=== PATIENT | female | born 1995 | race Caucasian/White ===

== ENCOUNTER 2021-05-28 00:45 | Emergency (ER) | payer OTHER, SELFPAY ==
--- NOTE | ~2021-05-28 | XR_ITS ---
EXAMINATION: XR SHOULDER, RIGHT CLINICAL INFORMATION: Pain COMPARISON: None TECHNIQUE: Four views of the right shoulder. FINDINGS: Glenohumeral alignment is anatomic. No acute fracture is seen. The acromioclavicular joint is intact. XR/XR shoulder RT min 2V IMPRESSION: No acute findings.
[2021-05-28 00:50] VITALS: BP 110/56; PULSE 81; RESP 16; TEMP 37.2; O2SAT 98; BMI 28.9
--- NOTE | 2021-05-28 01:54 | ED_ITS ---
HPI - Extremity Problem General Chief complaint: Extremity Injury, Upper Stated complaint: R shoulder pain Left lower back Time Seen by Provider: 05/28/21 00:47 Source: patient Mode of arrival: ambulatory Limitations: no limitations History of Present Illness HPI Narrative: Patient comes to the emergency room complaining of right shoulder pain and left-sided back pain. Patient states that she is in [employer]. Patient had to carry 150 lb bag over her shoulder for 3 flights Related Data Previous Rx's Medication Instructions Recorded cyclobenzaprine 5 mg tablet 10 mg PO TID PRN #7 tab 05/28/21 ibuprofen 600 mg tablet 600 mg PO Q6H PRN #14 tab 05/28/21 Allergies Allergy/AdvReac Type Severity Reaction Status Date / Time No Known Allergies Allergy Verified 05/28/21 01:53 Review of Systems Review of Systems: Constitutional : No Weight loss, No Fever, No Chills, No Night Sweats, No Fatigue, No Malaise ENT/Mouth : No Hearing loss, No Ear Pain, No Nasal Congestion, No Sinus Pain, No Hoarseness, No sore throat, No Rhinorrhea, No Swallowing Difficulty Eyes: No Eye Pain, No Swelling, No Redness, No Foreign Body, No Discharge, No Vision Changes Cardiovascular : No Chest Pain, No SOB, No Dyspnea on Exertion, No Orthopnea, No Edema, No Palpitations Respiratory : No Cough, No Sputum, No Wheezing, No Smoke Exposure, No Dyspnea Gastrointestinal : No Nausea, No Vomiting, No Diarrhea, No Constipation, No ab dominal Pain, No Hematochezia, No Melena Genitourinary : no irregular bleeding, No Dysuria, No Urinary Frequency, No Hematuria, No Urinary Incontinence, No Urgency, No Flank Pain, No Urinary Flow Changes, No Hesitancy Musculoskeletal : Complaining of right shoulder pain and left lower back pain Skin : No Skin Lesions, No rash Neuro : No Weakness, No Numbness, No Paresthesias, No Loss of Consciousness, No Dizziness, No Headache Psych : No Anxiety/Panic, No Depression, No SI/HI/AH/VH, No Social Issues, Heme/Lymph: No Bruising, No Bleeding,No Lymphadenopathy Endocrine : No Polyuria, No Polydipsia, No Temperature Intolerance PMFSH Past Medical History Medical History No known health problems Social History Social History Patient Tobacco Use Status: Never used Tobacco Use of substances other than those prescribed or required for medical reasons: No Advance Directives: No Advance Directives Information Provided: No Patient : No Physical Exam Vital Signs: Vital Signs: Last Vital Signs Temp 98.5 F 05/28/21 02:00 Pulse 71 05/28/21 02:00 Resp 16 05/28/21 02:00 BP 110/59 L 05/28/21 02:00 Pulse Ox 98 05/28/21 02:00 Body Mass Index 28.9 Const: Other: Appearance: Alert. Oriented X3. No acute distress. Eyes: Pupils equal, round and reactive to light. ENT: Pharynx normal. Neck: Normal inspection. Neck supple. No lymph nodes noted. No crepitus CVS: Normal heart rate and rhythm. Pulses normal. Normal S1 and S2 Respiratory: No respiratory distress. Breath sounds normal. No Wheezing. No rales Abdomen: Soft and nontender. No rigidity. No distention. Back: Pain to palpation over the paraspinal muscles on the left side of the back Skin: Skin warm and dry. Normal skin color. Normal skin turgor. Extremities: No lower extremity edema. Pain to palpation over the frontal aspect of the right shoulder. Patient is able to abduct the right arm up to 90 degrees. Neuro: Oriented X 3. No motor deficit. No sensory deficit. Moving all extermities. No slurred speech. Course Course Course Narrative: Patient sleeping comfortably now, given 1 dose of Toradol and 1 dose of 2 mg PO Valium. Patient instructed to follow-up with her primary care physician if she does not have any symptom improvement especially her shoulder, she may need an MRI. At this time, x-ray within normal limits, no bony abnormality, likely having bursitis versus labrum tear, versus rotator cuff inj ury MDM - Extremity (Nontraumatic) Lab Data Labs: Lab Results 05/28/21 05/28/21 Range/Units 02:23 02:23 Urine Color YELLOW Urine Appearance CLEAR Urine pH 6.0 (5.0-8.0) Ur Specific [place] 1.020 (1.005-1.025) Urine Protein NEG (NEG-TRACE) MG/DL Urine Glucose (UA) NEG (NEG) MG/DL Urine Ketones 15 (NEG) MG/DL Urine Blood TRACE (NEG) Urine Nitrite NEG (NEG) Ur Leukocyte Esterase NEG (NEG) Urine RBC 0 (0) /HPF Urine WBC 0-2 (0-4) /HPF Ur Squamous Epith Cells 2+ /LPF Urine Bacteria 2+ /LPF Urine Test NEGATIVE (NEGATIVE) Imaging Data Shoulder x-ray: Radiologist's impression: Glenohumeral alignment is anatomic. No acute fracture is seen. The acromioclavicular joint is intact.? XR/XR shoulder RT min 2V IMPRESSION: No acute findings. Discharge Plan Discharge Clinical Impression: Muscle strain Patient Disposition: Home, Self-Care Instructions: Musculoskeletal Pain (ED) Additional Instructions: Please follow-up with your primary care physician tomorrow. If you have any worsening or new symptoms, please return to the emergency room or call 911 Prescriptions: New ibuprofen 600 mg tablet 600 mg PO Q6H PRN (Reason: pain) Qty: 14 RF: 0 cyclobenzaprine 5 mg tablet 10 mg PO TID PRN (Reason: muscle spasm) Qty: 7 RF: 0 Referrals: Cristóbal Valderrama PA-C [Physician Cash Applications Representative] - 2 days Stand Alone Forms: Work/School Release
[2021-05-28 02:00] VITALS: BP 110/59; PULSE 71; RESP 16; TEMP 36.9; O2SAT 98
[2021-05-28] MEDS: Ketorolac Tromethamine 60 MG/2 ML VIAL IM (02:26)
[2021-05-28] MEDS: diazePAM 2 MG TABLET PO (02:30)
[2021-05-28 02:33] LABS: Appearance Urine CLEAR; Color Urine YELLOW; Glucose Urine UA NEG (NEG); Leukocyte Esterase Urine NEG (NEG); Nitrite Urine NEG (NEG); UACC Culture Trigger NO; Urine Blood TRACE (NEG); Urine Ketones 15 MG/DL (NEG); Urine Protein NEG (NEG-TRACE)
[2021-05-28 02:36] LABS: UPreg QC Valid YES; Urine Pregnancy NEGATIVE (NEGATIVE)
[2021-05-28 02:43] LABS: Bacteria Urine 2+ /LPF; RBC Urine 0 /HPF (0); Squamous Epithelial Cell Urine 2+ /LPF; WBC Urine 0-2 /HPF (0-4)
== END 2021-05-28 03:34 | disposition home or self-care (01) ==
PROVIDERS: Emergency Provider Emergency Medicine
DX: S46.911A Strain of unspecified muscle, fascia and tendon at shoulder and upper arm level, right arm, initial encounter (principal); X50.0XXA Overexertion from strenuous movement or load, initial encounter; Y93.A5 Activity, obstacle course; Y92.84 Military training ground as the place of occurrence of the external cause; Y99.8 Other external cause status
CPT/HCPCS: 73030; 81001; 81025; 96372; 99284; J1885

== ENCOUNTER → 2021-06-25 13:56 | Outpatient (BNVA) | payer OTHER, SELFPAY | PROVIDERS: Visit Provider Physician Assistant | DX: M75.101 Unspecified rotator cuff tear or rupture of right shoulder, not specified as traumatic (principal) | CPT/HCPCS: 99202 ==

== ENCOUNTER → 2021-08-06 15:31 | Outpatient (BNVA) | payer OTHER, SELFPAY | PROVIDERS: Visit Provider Physician Assistant | DX: M75.21 Bicipital tendinitis, right shoulder (principal); M75.101 Unspecified rotator cuff tear or rupture of right shoulder, not specified as traumatic; M89.8X1 Other specified disorders of bone, shoulder | CPT/HCPCS: 99212 ==

== ENCOUNTER 2021-10-09 18:43 | Outpatient (REF) | payer OTHER, SELFPAY ==
--- NOTE | ~2021-10-09 | MR_ITS ---
EXAMINATION: MR SHOULDER WITHOUT CONTRAST, RIGHT CLINICAL INFORMATION: Right shoulder pain. COMPARISON: None. TECHNIQUE: MRI of the shoulder without contrast was performed on a high-field scanner. FINDINGS: ROTATOR CUFF: Intact. No muscle atrophy or fatty infiltration. BICEPS: Normal. CORACOACROMIAL ARCH: The undersurface of the acromion is flat with no subacromial spur. The acromioclavicular joint is normal. LABRUM/CAPSULE: Normal. GLENOHUMERAL JOINT/MARROW: Normal. MR/MR shoulder RT wo con IMPRESSION: Unremarkable examination.
== END 2021-10-09 18:44 | disposition home or self-care (01) ==
LOC: HO.MRI 18:43
PROVIDERS: Visit Provider Physician Assistant
DX: M89.8X1 Other specified disorders of bone, shoulder (principal); M75.101 Unspecified rotator cuff tear or rupture of right shoulder, not specified as traumatic; M75.21 Bicipital tendinitis, right shoulder
CPT/HCPCS: 73221

== ENCOUNTER → 2021-11-07 08:57 | Outpatient (BNVA) | payer OTHER, SELFPAY | PROVIDERS: Visit Provider Physician Assistant | DX: M89.8X1 Other specified disorders of bone, shoulder (principal); M75.21 Bicipital tendinitis, right shoulder; M75.101 Unspecified rotator cuff tear or rupture of right shoulder, not specified as traumatic | CPT/HCPCS: 99212 ==

== ENCOUNTER → 2021-12-03 11:07 | Outpatient (BNVA) | payer OTHER, SELFPAY | PROVIDERS: Visit Provider Nurse Practitioner Family | DX: M89.8X1 Other specified disorders of bone, shoulder (principal); M75.21 Bicipital tendinitis, right shoulder; M75.101 Unspecified rotator cuff tear or rupture of right shoulder, not specified as traumatic; M25.511 Pain in right shoulder; M62.838 Other muscle spasm; Z33.1 Pregnant state, incidental | CPT/HCPCS: 99202 ==